=== PATIENT | female | born 1995 | race Two or more races ===

== ENCOUNTER 2018-02-13 12:20 | Inpatient (IN) | payer OTHER ==
[2018-02-13 13:30] VITALS: BMI 32.3
[2018-02-13] MEDS ORDERED: morphine SULFATE/Preservative Free 0.5 MG/ML (1cc Syringe) ONE (14:25)
[2018-02-13] MEDS ORDERED: CITRIC ACID/SODIUM CITRATE 30 ML UNIT-DOSE CUP PO ONE (14:28)
[2018-02-13] MEDS ORDERED: ELECTROLYTE-148 SOLN 1,000 ML IV SCH (14:30)
--- NOTE | 2018-02-13 14:34 | HP ---
Past Medical History - Primary Care Physician PCP:: Jordan Ta - Admission Chief Complaint: 40.4 weeks , previous c/s, request of repeat c/s History of Present Illness: 22 yo f one previous c/s 40,4 weeks gestation requesting c/s, risks discussed, vabc rba discussed, cx clp, fhr cat 1, ,, irregular contraction History Source: Patient Limitations to Obtaining History: No Limitations - Past Medical History Pulmonary: Yes: Asthma ...: 2 ...Para: 1 ...Term: 1 ...LMP: 05/05/17 ... Weeks Gestation by Dates: 40.4 ...EDC by Dates: 02/09/18 ...EDC by Sono: 02/14/18 - Past Surgical History Past Surgical History: Yes: Hx Myomectomy: No Hx Transabdominal Cerclage: No - Smoking History Smoking history: Never smoked Have you smoked in the past 12 months: No - Alcohol/Substance Use Hx Alcohol Use: No - Social History Usual Living Arrangement: Yes: With Spouse History of Recent Travel: No Home Medications - Allergies Allergies/Adverse Reactions: Allergies Allergy/AdvReac Type Severity Reaction Status Date / Time No Known Allergies Allergy Verified 02/13/18 12:49 - Home Medications Home Medications: Ambulatory Orders Docusate Sodium [Colace -] 100 mg PO BID #60 capsule 11/29/17 Nitrofurantoin Monohyd/M-Cryst [Macrobid -] 100 mg PO BID #14 capsule 11/29/17 Vitamins (Sjr) - 1 tab PO DAILY 11/29/17 Review of Systems - Review of Systems Constitutional: reports: No Symptoms Eyes: reports: No Symptoms HENT: reports: No Symptoms Neck: reports: No Symptoms Cardiovascular: reports: No Symptoms Respiratory: reports: No Symptoms Gastrointestinal: reports: No Symptoms Genitourinary: reports: No Symptoms Breasts: reports: No Symptoms Reported Musculoskeletal: reports: No Symptoms Integumentary: reports: No Symptoms Neurological: reports: No Symptoms Endocrine: reports: No Symptoms Hematology/Lymphatic: reports: No Symptoms Psychiatric: reports: No Symptoms Physical Exam - Maternity Vital Signs: Vital Signs Temperature 98.2 F 02/13/18 13:23 Pulse Rate 80 02/13/18 13:23 Respiratory Rate 20 02/13/18 13:23 Blood Pressure 104/54 L 02/13/18 13:23 O2 Sat by Pulse Oximetry (%) Constitutional: Yes: Obese Eyes: Yes: WNL, Conjunctiva Clear, EOM Intact HENT: Yes: WNL, Atraumatic, Normocephalic Neck: Yes: WNL, Supple, Trachea Midline Cardiovascular: Yes: WNL, Regular Rate and Rhythm Breast(s): Yes: WNL - Abdominal Exam/OB Fundal Height: 40 Number of Fetuses: Single Presentation: Vertex Contractions: Yes Regularity: Irregular Intensity: Unaware Monitor Mode: External Heart Rate Location: [facility] Category: I Accelerations: Uniform Decelerations: None - Vaginal Exam/OB Vaginal Bleediing: No Speculum Exam: No Dilatation (cm): closed Effacement (%): 0 Amniotic Membrane Status: Intact Presentation: Vertex/Position Station: -3 - Physical Exam Musculoskeletal: Yes: WNL Extremities: Yes: WNL Edema: LLE: Trace, RLE: Trace Deep Tendon Reflex Grade: Normal +2 Psychiatric: Yes: WNL Hemorrhage Risk Assessment - Risk Factors Medium Risk Factors: Yes: Prior , uterine surgery,or multiple laparotomies Risk Score: 1 Risk Level: Medium Risk Problem List - Problems (1) Post term over 40 weeks Code(s): O48.0 - POST-TERM (2) Previous section complicating Code(s): O34.219 - MATERNAL CARE FOR UNSP TYPE SCAR FROM PREVIOUS DEL (3) Obesity (BMI 30.0-34.9) Code(s): E66.9 - OBESITY, UNSPECIFIED Assessment/Plan requesting repeat c/s , rba discussed
[2018-02-13] MEDS ORDERED: KETOROLAC TROMETHAMINE 30 MG/1 ML VIAL ONE (14:59)
[2018-02-13] MEDS ORDERED: MIDAZOLAM HCL 2 MG/2 ML SINGLE DOSE VIAL ONE (15:01)
[2018-02-13] MEDS ORDERED: ONDANSETRON 4 MG/2 ML VIAL IVPUSH PRN (15:04)
[2018-02-13] MEDS ORDERED: OXYTOCIN 20 UNITS in 0.9% NS 20 UNIT/1,000 ML INFUS.BAG IV ONE (16:24)
[2018-02-13] MEDS ORDERED: METHYLERGONOVINE MALEATE 0.2 MG/1 ML AMP IM PRN (16:29)
[2018-02-13] MEDS ORDERED: diphenhydrAMINE HCL 25 MG CAPSULE (FP) PO PRN (16:29)
[2018-02-13] MEDS ORDERED: WITCH HAZEL 50% (TUCKS) 40 PAD/JAR PAD TP PRN (16:29)
[2018-02-13] MEDS ORDERED: IBUPROFEN 600 MG TABLET (FP) PO PRN (16:29)
[2018-02-13] MEDS ORDERED: BENZOCAINE 28 GM HEMORRHOIDAL OINTMENT PR PRN (16:29)
[2018-02-13] MEDS ORDERED: oxyCODONE HCL 5 MG TABLET PO PRN (16:29)
[2018-02-13] MEDS ORDERED: BENZOCAINE 20% 57 GM BOTTLE TP PRN (16:29)
[2018-02-13] MEDS ORDERED: OXYTOCIN 20 UNITS in 0.9% NS 20 UNIT/1,000 ML INFUS.BAG IV SCH ×2 (16:30→16:45)
[2018-02-13] MEDS ORDERED: DEXTROSE 5%-LACTATED RINGERS 1,000 ML IV SCH (16:30)
[2018-02-13] MEDS ORDERED: ACETAMINOPHEN 325 MG TABLET (FP) PO PRN (16:31)
[2018-02-13] MEDS ORDERED: CEFAZOLIN 1 GM in DEXTROSE 5%-WATER - 50 ML IVPB SCH (18:00)
[2018-02-13] MEDS: IBUPROFEN 800 MG/8 ML IJ IVPB PRN (20:20)
[2018-02-13] MEDS ORDERED: ceFAZolin SODIUM 1 GM VIAL ONE (23:07)
[2018-02-13] MEDS ORDERED: DEXTROSE 5%-WATER - 50 ML IVPB ONE (23:07)
[2018-02-13] MEDS: CEFAZOLIN 1 GM in DEXTROSE 5%-WATER - 50 ML IVPB SCH (23:12)
[2018-02-14] MEDS ORDERED: DEXTROSE 5%-WATER - 50 ML IVPB ONE (05:23)
[2018-02-14] MEDS ORDERED: ceFAZolin SODIUM 1 GM VIAL ONE (05:23)
[2018-02-14] MEDS: CEFAZOLIN 1 GM in DEXTROSE 5%-WATER - 50 ML IVPB SCH (06:40)
--- NOTE | 2018-02-14 07:59 | OP ---
DATE OF OPERATION: 02/13/2018 PREOPERATIVE DIAGNOSIS: at 40 weeks, previous section, request of repeat section. POSTOPERATIVE DIAGNOSIS: at 40 weeks, previous section, request of repeat section. PROCEDURE: Repeat low segment transverse section. SURGEON: Jordan Ta MD PLASTERER HELPER: ROBERT Howard ANESTHESIA: Spinal. ANESTHESIOLOGIST: Phoenix Moreno MD ESTIMATED BLOOD LOSS: 500 mL. DESCRIPTION OF PROCEDURE: The patient was taken to the operating room under adequate epidural anesthesia. Abdomen and perineum was prepped and draped. Pfannenstiel abdominal skin incision was made. Abdominal wall was cut layer by layer until the peritoneum was exposed and incised. Upon entering the abdominal cavity, lower uterine segment was identified, and uterovesical fold of peritoneum established. Bladder was pushed down. Then with the lower blade of the [place] retractor in the pelvis, a low transverse uterine incision was made. Incision extended laterally. Amniotic sac was entered. Clear fluid. Then the head delivered. Nasopharynx was suctioned. Live baby was delivered. Placenta was delivered manually. Uterine cavity was cleaned of all remaining tissue. Uterine incision was closed in 2 layers, the first layer with 0 Biosyn continuous suture, the second layer with 0 Biosyn imbricating the first layer. Bladder flap was closed with 0 Biosyn continuous suture. Both tubes and ovaries were checked and were normal. No active bleeding was seen. All of the lap pad, sponge, and instrument counts were correct. Then the peritoneum was closed with 0 Biosyn continuous suture. Muscles were brought together with interrupted sutures of 0 Biosyn. Fascia was closed with 0 Biosyn continuous suture. Subcutaneous fat interrupted suture of 0 Biosyn, and the skin was closed with jennifer. The patient tolerated the procedure well and left the OR in good condition. Nabor [id number]
[2018-02-14 08:05] LABS: BASO % 0.2 % (0-2.0); EOS % 1.5 % (0-4.5); HEMOGLOBIN 12.1 GM/dL (10.7-15.3); LYMPH % 10.7 % (8-40); MCH 28.4 pg (25.7-33.7); MCHC 32.6 g/dl (32.0-36.0); MEAN CELL VOLUME 87.1 fl (80-96); MEAN PLT VOLUME 8.4 fl (7.5-11.1); MONO % 5.9 % (3.8-10.2); NEUT % 81.7 % (42.8-82.8); PLATELET COUNT 211 K/MM3 (134-434); RBC 4.24 M/mm3 (3.60-5.2); RDW 16.5 % (11.6-15.6); WHITE BLOOD COUNT 9.7 K/mm3 (4.0-10.0)
[2018-02-14] MEDS: IBUPROFEN 800 MG/8 ML IJ IVPB PRN (09:35)
[2018-02-14] MEDS: SIMETHICONE 80 MG TAB.CHEW (FP) PO PRN ×3 (09:41→23:35)
[2018-02-14] MEDS: ENOXAPARIN NA (PORCINE) 40 MG/0.4 ML DISP.SYRIN SQ SCH (09:43)
[2018-02-14] MEDS ORDERED: DIPHTH,PERTUSS(ACELL),TET 0.5 ML DISP.SYRIN IM ONE (10:00)
--- NOTE | 2018-02-14 14:28 | PN ---
Progress Note, Physician Chief Complaint: s/p c section post op day one. History of Present Illness: under spinal anesthesia with duramorph for post op pain controll - Current Medication List Current Medications: Active Medications Acetaminophen (Tylenol -) 650 mg PO Q4H PRN PRN Reason: PAIN LEVEL 1-5 Benzocaine (Americaine 20% Dupo -) 1 spray TP PRN PRN PRN Reason: Pain - Topical Benzocaine (Americaine Ointment -) 1 applic WA PRN PRN PRN Reason: Pain - Topical Bisacodyl (Dulcolax Suppository -) 10 mg WA PRN PRN PRN Reason: CONSTIPATION Diphenhydramine HCl (Benadryl -) 25 mg PO Q8H PRN PRN Reason: FOR ITCHING Enoxaparin Sodium (Lovenox -) 40 mg SQ DAILY [facility] Last Admin: 02/14/18 09:43 Dose: 40 mg Parenteral Electrolytes (Plasma-Lyte 148 -) 1,000 mls @ 125 mls/hr IV ASDIR [facility] Last Admin: 02/13/18 13:00 Dose: 125 mls/hr Dextrose/Lactated Ringer's (D5-Lr -) 1,000 mls @ 125 mls/hr IV ASDIR [facility] Oxytocin/Sodium Chloride (Normal Saline+20 Units Oxytocin -) 20 unit in 1,000 mls @ 125 mls/hr IV ASDIR [facility] Ibuprofen (Motrin -) 600 mg PO Q4H PRN PRN Reason: PAIN LEVEL 4 - 6 Ibuprofen (Motrin -) 600 mg PO Q4H PRN PRN Reason: PAIN LEVEL 1 - 3 Ibuprofen (Caldolor Injection -) 800 mg IVPB Q6H PRN PRN Reason: PAIN > 5 if PO not effective. Last Admin: 02/14/18 09:35 Dose: 800 mg Methylergonovine Maleate (Methergine Injection -) 0.2 mg IM Q4H PRN PRN Reason: EXCESSIVE BLEEDING Ondansetron HCl (Zofran Injection) 4 mg IVPUSH Q4H PRN PRN Reason: NAUSEA Oxycodone HCl (Roxicodone -) 5 mg PO Q4H PRN PRN Reason: PAIN LEVEL 4 - 6 Oxycodone HCl (Roxicodone -) 10 mg PO Q4H PRN PRN Reason: PAIN LEVEL 7 - 10 Stop: 02/14/18 16:28 Senna/Docusate Sodium (Pericolace -) 2 tablet PO HS PRN PRN Reason: CONSTIPATION Simethicone (Mylicon -) 80 mg PO Q4H PRN PRN Reason: GAS Last Admin: 02/14/18 09:41 Dose: 80 mg Witch Martina/Glycerin (Tucks Pads -) 1 pad TP PRN PRN PRN Reason: Pain - Topical - Objective Vital Signs: Vital Signs Temperature 98.7 F 02/14/18 08:00 Pulse Rate 97 H 02/14/18 08:00 Respiratory Rate 20 02/14/18 10:00 Blood Pressure 107/62 02/14/18 08:00 O2 Sat by Pulse Oximetry (%) Constitutional: Yes: Well Nourished Cardiovascular: Yes: WNL Respiratory: Yes: WNL Gastrointestinal: Yes: WNL Labs: CBC, BMP 02/14/18 06:30 Assessment/Plan No adverse effect of anesthetic, pain controlled, no nausea or vomiting, dept of anesthesia will sign off care at this time.
[2018-02-14] MEDS: oxyCODONE HCL 5 MG TABLET PO PRN ×2 (15:32→23:36)
[2018-02-14] MEDS ORDERED: BISACODYL 10 MG SUPP.RECT PR PRN (16:29)
--- NOTE | 2018-02-14 16:41 | PN ---
Progress Note (short form) - Note Progress Note: pod 1 doing well, has mild low abdominal cramps CBC, BMP 02/14/18 06:30 Last Vital Signs Temp Pulse Resp BP Pulse Ox 98.6 F 88 20 103/65 02/14/18 14:00 02/14/18 14:00 02/14/18 14:00 02/14/18 14:00 abdomen soft, no distension, no cva incision dry, clean no calf tenderness plan ambulate, advance diet pain management Problem List - Problems (1) Post term over 40 weeks Code(s): O48.0 - POST-TERM (2) Previous section complicating Code(s): O34.219 - MATERNAL CARE FOR UNSP TYPE SCAR FROM PREVIOUS DEL (3) Obesity (BMI 30.0-34.9) Code(s): E66.9 - OBESITY, UNSPECIFIED
[2018-02-14] MEDS: IBUPROFEN 600 MG TABLET (FP) PO PRN (23:35)
[2018-02-15] MEDS: ENOXAPARIN NA (PORCINE) 40 MG/0.4 ML DISP.SYRIN SQ SCH (09:32)
--- NOTE | 2018-02-15 09:59 | PN ---
Progress Note (short form) - Note Progress Note: pod 2 doing well, no c/o . ambulating, passing gas CBC, BMP 02/14/18 06:30 Last Vital Signs Temp Pulse Resp BP Pulse Ox 98.7 F 88 18 110/67 02/14/18 23:30 02/14/18 23:30 02/14/18 23:30 02/14/18 23:30 abdomen soft, no distension, no cva inciaion dry, clean no calf tenderness plan ambulate, cbc in am Problem List - Problems (1) Post term over 40 weeks Code(s): O48.0 - POST-TERM (2) Previous section complicating Code(s): O34.219 - MATERNAL CARE FOR UNSP TYPE SCAR FROM PREVIOUS DEL (3) Obesity (BMI 30.0-34.9) Code(s): E66.9 - OBESITY, UNSPECIFIED
[2018-02-15] MEDS: IBUPROFEN 600 MG TABLET (FP) PO PRN ×2 (13:39→19:37)
[2018-02-15] MEDS: oxyCODONE HCL 5 MG TABLET PO PRN ×2 (13:39→19:35)
[2018-02-15] MEDS: SIMETHICONE 80 MG TAB.CHEW (FP) PO PRN ×2 (13:39→19:34)
[2018-02-15] MEDS ORDERED: SENNOSIDES/DOCUSATE COMBO (SENNA PLUS) TABLET (UD) PO PRN (22:00)
--- NOTE | 2018-02-16 08:00 | PN ---
Progress Note (short form) - Note Progress Note: pod 3 afebrile, ambulating CBC, BMP 02/14/18 06:30 Last Vital Signs Temp Pulse Resp BP Pulse Ox 98.6 F 93 H 18 111/52 L 02/15/18 22:00 02/15/18 22:00 02/15/18 22:00 02/15/18 22:00 abdomen soft, no distension, no cva incision dry, clean no calf tenderness no excess vaginal bleeding plan d/c home , follow up clinic 1 week for jennifer removal Problem List - Problems (1) Post term over 40 weeks Code(s): O48.0 - POST-TERM (2) Previous section complicating Code(s): O34.219 - MATERNAL CARE FOR UNSP TYPE SCAR FROM PREVIOUS DEL (3) Obesity (BMI 30.0-34.9) Code(s): E66.9 - OBESITY, UNSPECIFIED
--- NOTE | 2018-02-16 08:02 | DS ---
Physical Exam-RN CLINICIAN Vital Signs: Vital Signs Temperature 98.6 F 02/15/18 22:00 Pulse Rate 93 H 02/15/18 22:00 Respiratory Rate 18 02/15/18 22:00 Blood Pressure 111/52 L 02/15/18 22:00 O2 Sat by Pulse Oximetry (%) Constitutional: Yes: Well Nourished, No Distress, Calm Eyes: Yes: WNL, Conjunctiva Clear, EOM Intact HENT: Yes: WNL, Atraumatic, Normocephalic Neck: Yes: WNL, Supple, Trachea Midline Cardiovascular: Yes: WNL, Regular Rate and Rhythm Respiratory: Yes: WNL, Regular, CTA Bilaterally Gastrointestinal: Yes: WNL ...Rectal Exam: Yes: WNL Renal/: Yes: WNL ....Post : Yes: Uterus firm, Uterus non-tender, Slight lochia rubra Breast(s): Yes: WNL Musculoskeletal: Yes: WNL Extremities: Yes: WNL Edema: LLE: Trace, RLE: Trace Integumentary: Yes: WNL Wound/Incision: Yes: Clean/Dry, Well Approximated, Yaa Intact Neurological: Yes: WNL, Alert, Oriented ...Motor Strength: WNL Psychiatric: Yes: WNL, Alert, Oriented Labs: CBC, BMP 02/14/18 06:30 Delivery - Delivery Section: Repeat (no complication), Low Flap Transverse Type of Anesthesia: Spinal EBL (cc): 400 Delivery, Single - Stages of Labor Date of Delivery: 02/13/18 Time of Delivery: 14:57 Time Placenta Delivered: 14:58 Placenta: Yes: Expressed - Condition of It Administrator/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 Engine 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 Present: Yes Name: Harshil Jaime Gender: Female Weight: 7 lb 8 oz Position: OT Total Hours ROM (Hrs/Mins): 1M - 1 Minute Total Score: 9 5 Minutes Total Score: 9 - Feeding Plan Initial Plan: Exclusive throughout hospitalization Discharge Summary Reason For Visit: Current Active Problems Obesity (BMI 30.0-34.9) (Acute) Post term over 40 weeks (Acute) Previous section complicating (Acute) Procedures: Principal: repeat LST c/s Hospital Course: no complication Condition: Good - Instructions Diet, Activity, Other Instructions: regular diet, no intercourse, follow up [facility] care 1 week, if pain, heavy vaginal bleeding, fever call MD Referrals: Jordan Ta MD [Staff Physician] - Disposition: HOME - Home Medications Comprehensive Discharge Medication List: Ambulatory Orders Docusate Sodium [Colace -] 100 mg PO BID #60 capsule 11/29/17 Nitrofurantoin Monohyd/M-Cryst [Macrobid -] 100 mg PO BID #14 capsule 11/29/17 Vitamins (Sjr) - 1 tab PO DAILY 11/29/17 Ibuprofen [Motrin -] 600 mg PO QID #28 tablet 02/15/18
[2018-02-16] MEDS: SIMETHICONE 80 MG TAB.CHEW (FP) PO PRN (08:23)
[2018-02-16] MEDS: IBUPROFEN 600 MG TABLET (FP) PO PRN (08:23)
[2018-02-16] MEDS: oxyCODONE HCL 5 MG TABLET PO PRN (08:23)
[2018-02-16 08:31] LABS: BASO % 0.5 % (0-2.0); EOS % 4.3 % (0-4.5); HEMATOCRIT 37.4 % (32.4-45.2); HEMOGLOBIN 12.1 GM/dL (10.7-15.3); LYMPH % 18.8 % (8-40); MCH 28.4 pg (25.7-33.7); MCHC 32.4 g/dl (32.0-36.0); MEAN CELL VOLUME 87.6 fl (80-96); MEAN PLT VOLUME 7.8 fl (7.5-11.1); MONO % 6.5 % (3.8-10.2); NEUT % 69.9 % (42.8-82.8); PLATELET COUNT 247 K/MM3 (134-434); RBC 4.26 M/mm3 (3.60-5.2); RDW 16.6 % (11.6-15.6)
[2018-02-16] MEDS: ENOXAPARIN NA (PORCINE) 40 MG/0.4 ML DISP.SYRIN SQ SCH (09:31)
[2018-02-16 09:53] VITALS: BP 105/48; PULSE 70; TEMP 97.9
--- NOTE | 2018-02-20 14:53 | PATH ---
Surgical Pathology Report Patient Name: MYLES HUIZAR Med. Rec. 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 Specimen(s) Received PLACENTA Clinical History Repeat Final Diagnosis PLACENTA, SECTION: 522 G THIRD TRIMESTER PLACENTA WITH TRIVASCULAR UMBILICAL CORD AND UNREMARKABLE PLACENTAL MEMBRANES. Electronically Signed Arianne Loera M.D. Gross Description The specimen is received fresh labeled placenta and is a 522 gram, 16.0 x 15.0 x 3.0 cm. placenta with attached membranes and umbilical cord. The attached membranes are weeks, translucent with focal opacities and insert marginally. The umbilical cord measures 36 cm. in length and averages 0.9 cm. in diameter. The cord inserts eccentrically, 5 cm. to the nearest margin. No true knots or strictures are identified. Cut surface of the umbilical cord reveals 3 vessels. The surface is pederson-blue with minimal fibrin deposition and appropriate caliber vessels. The maternal surface is red-brown with focal defects. Sectioning reveals red-brown, spongy parenchyma. No lesions are identified. Job Compositor sections are submitted in three cassettes as follows: 1- membrane rolls and umbilical cord; 2-3- full thickness sections of placenta. /02/19/2018 [facility]02/19/2018
== END 2018-02-16 15:00 | disposition home or self-care (01) | DRG 540 ==
LOC: JLDR 12:20 → J3W 17:00
PROVIDERS: ADMIT Obstetrics & Gynecology; ATTEND Obstetrics & Gynecology
PROC: 10D00Z1 Extraction of Products of Conception, Low, Open Approach (ICD-10-PCS; principal; 2018-02-13)
DX: O34.211 Maternal care for low transverse scar from previous cesarean delivery (principal); O48.0 Post-term pregnancy; Z3A.40 40 weeks gestation of pregnancy; O99.214 Obesity complicating childbirth; E66.9 Obesity, unspecified; Z37.0 Single live birth; Z68.32 Body mass index [BMI] 32.0-32.9, adult
CPT/HCPCS: 36415; 85025; 88307-TC; 90686; 90715; G0008

== ENCOUNTER 2021-12-25 10:40 | Inpatient (IN) | payer OTHER ==
[2021-12-25] MEDS ORDERED: ELECTROLYTE-148 SOLN 1,000 ML IV SCH (14:30)
[2021-12-25] MEDS ORDERED: CITRIC ACID/SODIUM CITRATE 30 ML UNIT-DOSE CUP PO ONE (15:12)
[2021-12-25 15:14] VITALS: BMI 33.8
[2021-12-25] MEDS ORDERED: ACETAMINOPHEN 325 MG TABLET (FP) PO PRN ×2 (16:38→17:56)
[2021-12-25] MEDS ORDERED: morphine SULFATE/PF 1 MG/2 ML (2cc Syringe - QUVA) SPIN ONE (16:38)
[2021-12-25] MEDS ORDERED: ONDANSETRON 4 MG/2 ML VIAL IVPUSH PRN (16:38)
[2021-12-25] MEDS ORDERED: morphine SULFATE/PF 1 MG/2 ML (2cc Syringe - QUVA) ONE (16:48)
[2021-12-25] MEDS ORDERED: SUCCINYLCHOLINE CHLORIDE 200 MG/10 ML SYRINGE ONE (16:49)
[2021-12-25] MEDS ORDERED: ePHEDrine SULFATE 50 MG/1 ML AMPULE ONE (16:49)
[2021-12-25] MEDS ORDERED: PROPOFOL 20 ML ONE (16:50)
[2021-12-25] MEDS ORDERED: KETOROLAC TROMETHAMINE 30 MG/1 ML VIAL ONE (17:40)
[2021-12-25] MEDS ORDERED: ONDANSETRON 4 MG/2 ML VIAL ONE (17:40)
[2021-12-25] MEDS ORDERED: METHYLERGONOVINE MALEATE 0.2 MG/1 ML AMP IM PRN (17:56)
[2021-12-25] MEDS ORDERED: IBUPROFEN 800 MG/8 ML IJ IVPB PRN (17:56)
[2021-12-25] MEDS ORDERED: OXYTOCIN 20 UNITS in 0.9% NS 20 UNIT/1,000 ML INFUS.BAG IV SCH (18:00)
[2021-12-25] MEDS ORDERED: OXYTOCIN 20 UNITS in 0.9% NS 20 UNIT/1,000 ML INFUS.BAG IV ONE (18:58)
[2021-12-25] MEDS: FERROUS SO4 325 MG TABLET (FP) PO SCH (22:07)
[2021-12-26] MEDS ORDERED: oxyCODONE HCL 5 MG TABLET PO PRN (05:56)
[2021-12-26 06:44] LABS: BASO % 0.2 % (0-2.0); HEMATOCRIT 32.3 % (32.4-45.2); LYMPH % 15.2 % (8-40); MCH 27.8 pg (25.7-33.7); MCHC 34.1 g/dl (32.0-36.0); MEAN CELL VOLUME 81.4 fl (80-96); MEAN PLT VOLUME 8.5 fl (7.5-11.1); MONO % 4.8 % (3.8-10.2); NEUT % 79.8 % (42.8-82.8); PLATELET COUNT 232 10^3/uL (134-434); RBC 3.97 M/mm3 (3.60-5.2); RDW 16.6 % (11.6-15.6); WHITE BLOOD COUNT 9.1 K/mm3 (4.0-10.0)
[2021-12-26] MEDS: SIMETHICONE 80 MG TAB.CHEW (FP) PO PRN ×3 (09:48→22:36)
[2021-12-26] MEDS: IBUPROFEN 600 MG TABLET (FP) PO PRN ×3 (09:48→22:36)
[2021-12-26] MEDS: FERROUS SO4 325 MG TABLET (FP) PO SCH ×2 (09:52→22:36)
[2021-12-26] MEDS: PRENATAL VITAMINS W/ FOLIC ACID TABLET (FP) PO SCH (09:53)
[2021-12-26] MEDS ORDERED: BISACODYL 10 MG SUPP.RECT RC PRN (17:56)
[2021-12-27] MEDS: FERROUS SO4 325 MG TABLET (FP) PO SCH ×2 (09:17→21:02)
[2021-12-27] MEDS: IBUPROFEN 600 MG TABLET (FP) PO PRN ×2 (09:17→19:56)
[2021-12-27] MEDS: PRENATAL VITAMINS W/ FOLIC ACID TABLET (FP) PO SCH (09:17)
[2021-12-27] MEDS: SIMETHICONE 80 MG TAB.CHEW (FP) PO PRN ×2 (09:17→19:56)
[2021-12-28 09:28] LABS: BASO % 0.6 % (0-2.0); EOS % 1.3 % (0-4.5); HEMATOCRIT 32.3 % (32.4-45.2); HEMOGLOBIN 10.9 GM/dL (10.7-15.3); LYMPH % 21.2 % (8-40); MCH 27.7 pg (25.7-33.7); MCHC 33.8 g/dl (32.0-36.0); MEAN CELL VOLUME 81.9 fl (80-96); MEAN PLT VOLUME 8.5 fl (7.5-11.1); NEUT % 71.9 % (42.8-82.8); PLATELET COUNT 277 10^3/uL (134-434); RBC 3.94 M/mm3 (3.60-5.2); RDW 16.7 % (11.6-15.6); WHITE BLOOD COUNT 7.9 K/mm3 (4.0-10.0)
[2021-12-28] MEDS: PRENATAL VITAMINS W/ FOLIC ACID TABLET (FP) PO SCH (10:09)
[2021-12-28] MEDS: FERROUS SO4 325 MG TABLET (FP) PO SCH (10:09)
[2021-12-28 10:39] VITALS: BP 119/71; PULSE 85; RESP 18; TEMP 97.6
== END 2021-12-28 12:20 | disposition home or self-care (01) | DRG 540 ==
LOC: JLDR 10:40 → UNDOADMIN 10:40 → JLDR 14:00 → J3W 20:42
PROVIDERS: ADMIT Obstetrics & Gynecology; ATTEND Obstetrics & Gynecology
PROC: 10D00Z1 Extraction of Products of Conception, Low, Open Approach (ICD-10-PCS; principal; 2021-12-25)
PROC: 0UL70ZZ Occlusion of Bilateral Fallopian Tubes, Open Approach (ICD-10-PCS; 2021-12-25)
DX: O34.211 Maternal care for low transverse scar from previous cesarean delivery (principal); O69.81X0 Labor and delivery complicated by cord around neck, without compression, not applicable or unspecified; O99.214 Obesity complicating childbirth; E66.9 Obesity, unspecified; Z3A.38 38 weeks gestation of pregnancy; Z37.0 Single live birth; Z30.2 Encounter for sterilization
CPT/HCPCS: 36415; 85025; 88302-TC; 88307-TC